=== PATIENT | male | born 1960 | race Caucasian/White ===

== ENCOUNTER 2022-12-08 13:20 | Day surgery (SDC) | payer OTHER ==
[~2022-12-08] VITALS: Ht 180.3 cm; Wt 80.3 kg
[~2022-12-08 13:20] MED LIST: ASPIR 8181 M1 PO; ATOR40TA PO; CLOP75 PO
[2022-12-08] MEDS ORDERED: ESCI20 (13:50)
[2022-12-08] MEDS ORDERED: HYDCHL25 (13:50)
--- NOTE | 2022-12-08 14:42 | NUR ---
12/08/22 1442 Suzi Vick PT REQUESTED NO MEDICATION DURING PROCEDURE UNLESS HE BECOMES UNCORMFORTABLE.
[2022-12-08 15:11] VITALS: BP 127/78
--- NOTE | 2022-12-08 15:14 | NUR ---
12/08/22 1514 Suzi Vick LATE ENTRY PATIENT REFUSED MULTIPLE OFFERS OF PO FLUIDS
== END 2022-12-08 15:05 | disposition home or self-care (01) ==
LOC: ORSCSDS 13:20
PROVIDERS: Internal Medicine Gastroenterology
PROC: 0DJD8ZZ Inspection of Lower Intestinal Tract, Via Natural or Artificial Opening Endoscopic (ICD-10-PCS; principal; 2022-12-08 14:30)
DX: Z12.11 Encounter for screening for malignant neoplasm of colon (principal); Z86.010 Personal history of colon polyps; K64.8 Other hemorrhoids; K57.30 Diverticulosis of large intestine without perforation or abscess without bleeding; Z87.891 Personal history of nicotine dependence; Z79.82 Long term (current) use of aspirin; Z79.899 Other long term (current) drug therapy
CPT/HCPCS: J2704; J7120